=== PATIENT | female | born 1960 | race Caucasian/White ===

== ENCOUNTER 2020-02-03 11:58 | Emergency (ER) | payer MEDICARE, MEDICAID, SELFPAY ==
[2020-02-03 12:39] VITALS: BP 180/83; PULSE 96; RESP 20; TEMP 37; O2SAT 94; BMI 38.3
--- NOTE | 2020-02-03 12:39 | ED_ITS ---
HPI - Fall General: Chief Complaint: Fall Stated Complaint: FALL 2 DAYS AGO, NO COMPLAINT Time Seen by Provider: 02/03/20 12:09 History of Present Illness: HPI Narrative: 59-year-old female patient with Parkinson's disease presents to the emergency department at the request of her primary care physician. She reports sustained a fall on in her home, she reports lost her balance. She reports remained on the floor for 12 hours for she was found. She reports could not get up due to weakness. She reports decreased appetite, 1 episode of vomiting that occurred Monday. None since. She reports did not hit her head. She denies new pain or new complaints today upon exam. She reports ambulates at home with walker assistance and has motorized wheelchair. She reports getting around in her home since the fall. She denies neck pain or extremity pain. complaint: fall Onset (ago): day(s) (01/30/2020) Fall from: out of bed Fall witnessed: no Place fall occurred: home Loss of consciousness: None Prolonged down time: yes (10-12 hours) Symptoms prior to fall: none Context: tripped/slipped Location of injury: other (denies pain or new complaints) Associated symptoms-after fall: Reports no associated symptoms and weakness (chronic due to Parkinson's disease); Denies abdominal pain, chest pain or headache(s) Review of Systems General: Reports: 10 or more systems reviewed and unremarkable except in HPI and below Const: Reports: fatigue (chronic - not worse or changed); Denies: fever(s), chills or diaphoresis Eyes: Denies: change in vision, blurry vision or eye redness ENMT: Denies: throat pain, dental pain, disequilibrium or nasal obstruction Card: Denies: chest pain, palpitations, irregular heart rhythm, pre-syncope or leg pain with exertion Resp: Denies: dyspnea, productive cough, non-productive cough or wheezing GI: Reports: vomiting (once 3 days ago - none since); Denies: abdominal pain, nausea, dysphagia or GI cramping : Denies: difficulty voiding or dysuria Musc: Reports: back pain (chronic - not changed), joint stiffness (due to arthritis - not changed) and muscle weakness (chronic); Denies: joint pain Skin/Breast: Denies: rash or pruritus Neuro: Reports: involuntary movements (Parkinson's disease) and other (tremors due to Parkinson's disease); Denies: headache(s), weakness in extremities or behavioral changes Germán/Lymph: Denies: easy bruising Physical Exam Const: COMMON NORMALS: no acute distress, patient oriented x3, healthy appearing and alert GENERAL APPEARANCE: cooperative, comfortable and well hydrated NUTRITIONAL APPEARANCE: obese ORIENTATION/CONSCIOUSNESS: Yes awake, Yes oriented to person, Yes oriented to place and Yes oriented to time HENMT: COMMON NORMALS: normocephalic, Normal external nose present and moist oral mucous membranes HEAD & SCALP: normocephalic NOSE: Normal external nose present Eye: COMMON NORMALS: Equal, round and reactive pupils present and EOMs intact bilaterally GENERAL EYE: appearance normal, both eyes and all related structures PUPIL: Yes Equal, round and reactive pupils present Neck/C-Spine: COMMON NORMALS: full ROM and no lymphadenopathy GENERAL: Yes normal visual inspection and Yes trachea midline CERVICAL SPINE: Yes cervical ROM normal Lymph: LYMPHATIC: no lymphadenopathy noted Chest: COMMONS NORMALS: normal inspection of the chest Resp: COMMON NORMALS: normal respiratory effort and clear to auscultation bilaterally AUSCULTATION: clear to auscultation bilaterally Cardio: COMMON NORMALS: regular rhythm, S1 normal heart sound present and S2 normal heart sound present RHYTHM: regular rhythm HEART SOUNDS: S1 normal heart sound present and S2 normal heart sound present GI: COMMON NORMALS: Soft to palpation and non-tender INSPECTION: Yes normal to inspection PALPATION: Yes Soft to palpation : COMMON NORMALS: Yes no CVA tenderness BLADDER/KIDNEY EXAM: Yes no CVA tenderness Back/Pelvis: COMMON NORMALS: no CVA tenderness and thoracic and lumbar spine normal to inspection Extremity: COMMON NORMALS: normal to inspection and capillary refill normal Neuro: JON COMA SCALE: document [facility] findings [place] coma scale eye opening: Spontaneous [place] coma scale verbal response: Orientated [place] coma scale motor response: Obey commands Jon coma scale total score: 15 COMMON NORMALS: patient oriented x3 and no focal motor deficits SENSORIUM/ORIENTATION: Yes alert, Yes oriented to person, Yes oriented to place and Yes oriented to time SPEECH: speech normal MOTOR EXAM: Abnormal motor strength present (BLE strength 3/5, BUE 4/5) and Tremors during motor activity present resting tremor Psych: COMMON NORMALS: mental status grossly normal, Normal thought process present and cooperative ACTIVITY/MOTOR BEHAVIOR: Yes appropriate eye contact THOUGHT PROCESS: Normal thought process present Skin: COMMON NORMALS: no rashes or lesions noted and turgor normal GENERAL SKIN EXAM: no rashes or lesions noted and turgor normal Course ED course: 59-year-old female patient presents to the emergency department status post fall approximately 4 days ago. She was sent at the request of her primary care physician for labs. She was found to have potassium level of 2.7. Spoke with Dr. Phoenix. Potassium will be replaced here in the ED with outpatient follow-up with her primary care provider for repeat chemistry. She continues to deny complaints during her stay. IV fluids were administered due to slight elevation of CPK. She did not develop nausea vomiting after administration of p.o. potassium supplement. Vital Signs: Vital signs: Vital Signs Temperature 98.6 F 02/03/20 12:39 Pulse Rate 79 02/03/20 15:14 Respiratory Rate 18 02/03/20 15:14 Blood Pressure 170/78 02/03/20 15:14 Pulse Oximetry 91 02/03/20 15:14 MDM - Fall Lab Data: Labs: Lab Results 02/03/20 02/03/20 02/03/20 Range/Units 12:51 13:18 13:18 WBC 4.9 (4.0-10.0) 10^3/ uL RBC 3.94 L (4.1-5.3) 10^6/u L Hgb 11.0 L (11.5-15.3) g/dL Hct 32.9 L (37.0-47.0) % MCV 83.5 (81-99) fL MCH 27.9 L (28.0-34.0) pg MCHC 33.4 (30.0-36.0) g/dL RDW 14.3 (12.1-15.1) % Plt Count 192 (130-400) 10^3/c mm MPV 8.9 (7.4-10.4) fL Neut % (Auto) 88.0 % Lymph % (Auto) 7.1 % [place] % (Auto) 3.9 % Eos % (Auto) 0.0 % Baso % (Auto) 0.2 % Neut # (Auto) 4.34 (1.8-7.7) 10^3/u L Lymph # (Auto) 0.4 L (0.8-4.8) 10^3/u L [place] # (Auto) 0.2 (0.2-0.9) 10^3/u L Eos # (Auto) 0.0 (0.0-0.8) 10^3/u L Baso # (Auto) 0.0 (0.0-0.1) 10^3/u L Nucleated RBC % (a uto) 0 % Nucleated RBCs # 0.0 /100WBC Sodium 136 (136-145) mmol/L Potassium 2.7 L* (3.5-5.1) mmol/L Chloride 100 (98-107) mmol/L Carbon Dioxide 23 (22-29) mmol/L Anion Gap 15.7 (5-19) BUN 18 (8-23) mg/dL Creatinine 0.8 (0.5-0.9) mg/dL GFR Calculation 72.9 L (90-130) mL/min Glucose 295 H (65-115) mg/dL Calculated Osmolal ity 295 (285-295) mOsm/k g Calcium 8.3 L (8.5-10.5) mg/dL Creatine Kinase 345 H* (26-192) U/L Urine Color Yellow (Yellow) Urine Appearance Cloudy (CLEAR) Urine pH 5 (5-7) Ur Specific Gravit y 1.025 (1.005-1.030) Urine Protein 2+ H (Negative) Urine Glucose (UA) 1+ (Normal) Urine Ketones 2+ H (Negative) Urine Blood 3+ H (Negative) Urine Nitrate Negative (Negative) Urine Bilirubin 1+ H (Negative) Urine Urobilinogen Norm (Negative) mg/dL Ur Leukocyte Catarina ase 1+ H (Negative) Urine RBC 5-10 H (0-2) /hpf Urine WBC 15-25 H (0-5) /hpf Ur Squamous Epith Cells 0-4 H (0-5) /hpf Amorphous Sediment Not Reportable Urine Bacteria 4+ H (NONE) /hpf Discharge Plan Discharge Patient Disposition: Home Clinical Impression: Acute UTI (urinary tract infection), Acute hypokalemia Fall as cause of accidental injury at home as place of occurrence Qualifiers: Encounter type: initial encounter Qualified Code(s): W19.XXXA - Unspecified fall, initial encounter Condition: Stable Prescriptions: New Macrobid 100 mg capsule 100 mg PO BID 7 Days Qty: 14 RF: 0 potassium chloride 10 mEq capsule, extended release 10 meq PO BID Qty: 20 RF: 0 No Action gabapentin 600 mg tablet See Rx Instructions .ROUTE .COMPLEX RF: 0 glipizide 10 mg tablet 10 mg PO DAILY RF: 0 citalopram 20 mg tablet 20 mg PO DAILY RF: 0 gabapentin 800 mg tablet 800 mg PO BEDTIME RF: 0 metformin 1,000 mg tablet 1,000 mg PO BID RF: 0 lisinopril 10 mg tablet 10 mg PO DAILY RF: 0 aspirin 81 mg Tablet,Chewable 81 mg PO DAILY RF: 0 carbidopa-levodopa 25-100 mg tablet 1 tab PO QID RF: 0 Januvia 50 mg tablet 50 mg PO DAILY RF: 0 Bydureon 2 mg/0.65 mL pen injector 2 mg SUBCUT Q7D RF: 0 Discharge Orders: Discharge Order (Routine); Ordered 02/03/20 Ordered By: Sherrill Dave Discharge Diet: Usual diet Discharge Activity: Limit activity as instructed Patient Instructions: Urinary Tract Infection in Women (ED), Potassium Content of Foods List (ED), Hypokalemia (ED), Fall Prevention (ED) Activity Restrictions/Additional Instructions: Rest at home Avoid falls Take potassium as directed Eat foods high in potassium Follow-up with your primary care physician, Dr. Sherry Rayo this week for repeat chemistry Return to the emergency department if you sustain another fall or if you develop nausea vomiting or worsening symptoms. Discharge Date/Time: 02/03/20 15:16 Coding Level of Care Code ED Peer Health Promoter for [facility] Fwd Exam Comprehensive
[2020-02-03 13:16] LABS: Glucose Urine UA 1+ (Normal); Protein Urine 2+ (Negative); Specific Gravity, Urine 1.025 (1.005-1.030); Urine Appearance Cloudy (CLEAR); Urine Color Yellow (Yellow); pH Urine 5 (5-7)
[2020-02-03 13:17] LABS: Add Urine Microscopic? YES; Bilirubin Urine 1+ (Negative); Blood Urine 3+ (Negative); Ketones Urine 2+ (Negative); Leukocyte Esterase Urine 1+ (Negative); Nitrate Urine Negative (Negative); Urobilinogen Urine Norm (Negative)
[2020-02-03 13:20] LABS: Add Urine Culture? Yes; Bacteria Urine 4+ /hpf; Squamous Epithelial Cell Urine 0-4 /hpf (0-5); WBC Urine 15-25 /hpf (0-5)
[2020-02-03 13:25] LABS: Basophils % 0.2 %; Hematocrit 32.9 % (37.0-47.0); Lymphocytes # 0.4 10^3/uL (0.8-4.8); Lymphocytes % 7.1 %; Mean Corpuscular HGB Conc 33.4 g/dL (30.0-36.0); Mean Corpuscular Hemoglobin 27.9 pg (28.0-34.0); Mean Corpuscular Volume 83.5 fL (81-99); Mean Platelet Volume 8.9 fL (7.4-10.4); Monocytes # 0.2 10^3/uL (0.2-0.9); Monocytes % 3.9 %; Neutrophils # 4.34 10^3/uL (1.8-7.7); Nucleated Red Blood Cells % 0 %; Platelet Count 192 10^3/cmm (130-400); Red Blood Count 3.94 10^6/uL (4.1-5.3); Red Cell Distribution Width 14.3 % (12.1-15.1); White Blood Count 4.9 10^3/uL (4.0-10.0)
[2020-02-03 13:42] VITALS: BP 170/83; RESP 20; O2SAT 94
[2020-02-03 13:49] LABS: Anion Gap 15.7 (5-19); Blood Urea Nitrogen 18 mg/dL (8-23); Calcium 8.3 mg/dL (8.5-10.5); Carbon Dioxide 23 mmol/L (22-29); Chloride 100 mmol/L (98-107); Glomerular Filtration Rate 72.9 mL/min (90-130); Glucose 295 mg/dL (65-115); Osmolality Calculated 295 mOsm/kg (285-295); Sodium 136 mmol/L (136-145)
[2020-02-03 13:54] LABS: Creatine Phosphokinase 345 U/L (26-192); Potassium 2.7 mmol/L (3.5-5.1)
[2020-02-03] MEDS: potassium chloride ER 10 mEq Tablet 40 MEQ PO (14:18)
[2020-02-03] MEDS: sodium chloride 0.9% 500 ML 999 ML IV (14:24)
[2020-02-03 14:34] VITALS: BP 170/78; PULSE 75; RESP 18; O2SAT 92
[2020-02-03 15:14] VITALS: BP 170/78; PULSE 79; RESP 18; O2SAT 91
--- NOTE | 2020-02-04 11:31 | DCPLANNER ---
dialysis clinical manager had message to schedule a follow up appointment for patient with primary care for repeat labs. dialysis clinical manager called patient and asked patient if case fitter could schedule the follow up appointment for patient with her primary care. Patient stated that she has an appointment scheduled later this week with her primary care.
== END 2020-02-03 15:16 | disposition home or self-care (01) ==
PROVIDERS: Emergency Provider Nurse Practitioner Family
DX: N39.0 Urinary tract infection, site not specified (principal); E87.6 Hypokalemia; W19.XXXA Unspecified fall, initial encounter; Z79.84 Long term (current) use of oral hypoglycemic drugs; Z79.82 Long term (current) use of aspirin
CPT/HCPCS: 12345; 36415; 80048; 81001; 82550; 85025; 87077; 87086; 87186; 99283; J7040